=== PATIENT | female | born 1950 ===

== ENCOUNTER 2023-05-08 08:00 | Inpatient (IN) | payer OTHER ==
[~2023-05-08] VITALS: Ht 160 cm; Wt 45.4 kg
[2023-05-08 08:45] LABS: HEMATOCRIT 38.1 % (36.0-45.00); HEMOGLOBIN 12.8 g/dL (12.0-15.00); MEAN CELL VOLUME 93.9 fL (80.00-100.00); MEAN CORPUSCULAR HEMOGLOBIN 31.6 pg (27.00-32.0); MEAN CORPUSCULAR HGB CONC 33.7 g/dl (32.0-36.0); PLATELET COUNT 256 K/uL (150-450); RED BLOOD COUNT 4.05 M/uL (4.00-6.00); RED CELL DISTRIBUTION WIDTH 13.7 % (11.5-14.5)
[2023-05-08 09:05] LABS: INR < 0.93; PARTIAL THROMBOPLASTIN TIME 26.9 SECONDS (22.0-34.0); PROTHROMBIN TIME 9.8 SECONDS (9.0-11.5)
[2023-05-08 09:20] LABS: PH,URINE 5.5 (5.0-8.0); URINE APPEARANCE Clear; URINE BILIRRUBIN Negative (NEGATIVE); URINE BLOOD Small; URINE COLOR Yellow; URINE GLUCOSE Negative (NEGATIVE); URINE LEUKOCYTE Trace; URINE NITRATE Negative; URINE PROTEIN Negative (NEGATIVE); URINE UROBILINOGEN 0.2 E.U./dl
[2023-05-08 09:21] LABS: URINE EPITHELIAL CELLS 2.9 uL (0.0-38.8); URINE RBC 18.9 uL (0.0-20.8); URINE WBC 17.4 uL (0.0-23.2)
[2023-05-08 09:24] LABS: BILIRUBIN TOTAL 0.65 mg/dL (0.3-1.2); CALCIUM 9.6 mg/dL (8.5-10.1); CREATININE SERUM 0.4 mg/dL (0.55-1.02); GFR 156.9; GLOBULINA 3.3 G/DL (2.4-3.5); POTASSIUM 3.93 mEq/L (3.5-5.1); TOTAL PROTEIN 7.3 gm/dL (6.4-8.2)
[2023-05-08] MEDS ORDERED: SYNTHROID50 MCG PO (09:44)
[2023-05-14 23:16] LABS: HEMATOCRIT 29.7 % (36.0-45.00); RED BLOOD COUNT 3.08 M/uL (4.00-6.00)
[2023-05-14 23:42] LABS: HEMOGLOBIN 9.9 g/dL (12.0-15.00)
[2023-05-15 07:19] LABS: HEMATOCRIT 27.1 % (36.0-45.00); HEMOGLOBIN 9.2 g/dL (12.0-15.00); MEAN CELL VOLUME 94.6 fL (80.00-100.00); MEAN CORPUSCULAR HEMOGLOBIN 32.1 pg (27.00-32.0); MEAN CORPUSCULAR HGB CONC 33.9 g/dl (32.0-36.0); PLATELET COUNT 183 K/uL (150-450); RED BLOOD COUNT 2.86 M/uL (4.00-6.00); RED CELL DISTRIBUTION WIDTH 13.4 % (11.5-14.5)
[2023-05-16 06:53] LABS: HEMOGLOBIN 10.3 g/dL (12.0-15.00); MEAN CELL VOLUME 93.5 fL (80.00-100.00); MEAN CORPUSCULAR HGB CONC 34.2 g/dl (32.0-36.0); PLATELET COUNT 170 K/uL (150-450); RED BLOOD COUNT 3.21 M/uL (4.00-6.00); RED CELL DISTRIBUTION WIDTH 13.7 % (11.5-14.5)
[2023-05-16] MEDS ORDERED: OXYC1TAB9 PO (08:20)
[2023-05-16] MEDS ORDERED: INTEGRA PLUS C1 EACH PO (08:20)
[2023-05-16] MEDS ORDERED: XARELTO10 MG PO (08:20)
[2023-05-16] MEDS ORDERED: BACTRIM DS TAB1 EACH PO (08:20)
== END 2023-05-16 15:09 | DRG 470 ==
LOC: SURH 05-14 08:00 → O/R 05-14 09:20 → SURH 05-14 14:00 → SURG 05-14 19:18
PROVIDERS: ADMIT Orthopaedic Surgery Sports Medicine; ATTEND Orthopaedic Surgery Sports Medicine
PROC: 0SR90JA Replacement of Right Hip Joint with Synthetic Substitute, Uncemented, Open Approach (ICD-10-PCS; principal; 2023-05-14 14:00)
PROC: 30233N1 Transfusion of Nonautologous Red Blood Cells into Peripheral Vein, Percutaneous Approach (ICD-10-PCS; 2023-05-15)
DX: M16.11 Unilateral primary osteoarthritis, right hip (principal); D64.9 Anemia, unspecified; E03.9 Hypothyroidism, unspecified

== ENCOUNTER 2024-05-01 07:15 | Inpatient (IN) | payer OTHER ==
[~2024-05-01] VITALS: Ht 91.4 cm; Wt 49.0 kg
[~2024-05-01 07:15] MED LIST: BACTRIM DS TAB1 EACH PO; INTEGRA PLUS C1 EACH PO; OXYC1TAB9 PO; SYNTHROID50 MCG PO; XARELTO10 MG PO
[2024-05-01 08:55] VITALS: BP 116/82
[2024-05-01 08:56] LABS: HEMATOCRIT 40.6 % (36.0-45.00); HEMOGLOBIN 13.4 g/dL (12.0-15.00); MEAN CELL VOLUME 95.6 fL (80.00-100.00); MEAN CORPUSCULAR HEMOGLOBIN 31.6 pg (27.00-32.0); MEAN CORPUSCULAR HGB CONC 33.1 g/dl (32.0-36.0); PLATELET COUNT 280 K/uL (150-450); RED BLOOD COUNT 4.25 M/uL (4.00-6.00); RED CELL DISTRIBUTION WIDTH 13.3 % (11.5-14.5)
[2024-05-01] MEDS ORDERED: VITAMIN D (09:01)
[2024-05-01] MEDS ORDERED: SIMVASTATIN10 MG PO (09:01)
[2024-05-01 09:16] LABS: INR 0.96; PARTIAL THROMBOPLASTIN TIME 26.4 SECONDS (22.0-34.0); PROTHROMBIN TIME 10.5 SECONDS (9.0-11.5)
[2024-05-01 09:22] LABS: PH,URINE 5.5 (5.0-8.0); URINE APPEARANCE Clear; URINE BILIRRUBIN Negative (NEGATIVE); URINE BLOOD Trace; URINE COLOR Yellow; URINE GLUCOSE Negative (NEGATIVE); URINE KETONE Negative (NEGATIVE); URINE LEUKOCYTE Small; URINE NITRATE Negative; URINE PROTEIN Negative (NEGATIVE); URINE UROBILINOGEN 0.2 E.U./dl
[2024-05-01 09:27] LABS: URINE BACTERIA 51.3 uL (0.0-1933); URINE EPITHELIAL CELLS 2.2 uL (0.0-38.8); URINE WBC 8.7 uL (0.0-23.2)
[2024-05-01 09:42] LABS: URINE RBC 1.9 uL (0.0-20.8)
[2024-05-01 10:12] LABS: CREATININE SERUM 0.45 mg/dL (0.55-1.02); GFR 136.58; POTASSIUM 4.69 mEq/L (3.5-5.1)
[2024-05-01 10:26] LABS: ALBUMIN 4.1 gm/dL (3.4-5.0); BILIRUBIN TOTAL 0.66 mg/dL (0.3-1.2); GLOBULINA 3.6 G/DL (2.4-3.5); TOTAL PROTEIN 7.7 gm/dL (6.4-8.2)
[2024-05-01 15:12] LABS: RH POSITIVE
[2024-05-12] MEDS ORDERED: CEFAZOLIN SODIUM 1,000 MG VIAL ONE ×2 (06:33→12:21)
[2024-05-12] MEDS ORDERED: KETOROLAC TROMETHAMINE 60 MG VIAL IM ONE (06:58)
[2024-05-12] MEDS ORDERED: BUPIVACAINE HCL 0.5% 50ML VIAL ONE (06:58)
[2024-05-12] MEDS ORDERED: METHYLPREDNISOLONE ACETATE 80 MG/ML VIAL ONE (06:58)
[2024-05-12] MEDS ORDERED: LIDOCAINE HCL 1%/EPINEPHRINE 20ML VIAL IJ ONE (06:58)
[2024-05-12] MEDS ORDERED: TRANEXAMIC ACID 100MG/1ML (1000MG) AMPUL IV ONE (07:08)
[2024-05-12] MEDS ORDERED: GENTAMICIN SULFATE 40 MG/ML VIAL IV SCH (10:51)
[2024-05-12] MEDS ORDERED: MORPHINE SULFATE 4 MG/ML CARTRIDGE IV PRN (11:00)
[2024-05-12] MEDS ORDERED: SODIUM CHLORIDE 0.45 % 1,000 ML IV SCH (11:00)
[2024-05-12] MEDS ORDERED: MORPHINE SULFATE 2 MG/ML CARTRIDGE IV ONE (11:00)
[2024-05-12] MEDS ORDERED: ONDANSETRON HCL 2 MG/ML VIAL IV PRN (11:00)
[2024-05-12] MEDS ORDERED: CEFAZOLIN SODIUM 1,000 MG VIAL IV SCH (12:00)
[2024-05-12 12:45] LABS: HEMATOCRIT 32.8 % (36.0-45.00); HEMOGLOBIN 10.9 g/dL (12.0-15.00); RED BLOOD COUNT 3.44 M/uL (4.00-6.00)
[2024-05-12 13:30] VITALS: BP 133/63; O2SAT 100
[2024-05-12 16:23] VITALS: BP 130/74; O2SAT 99
[2024-05-12] MEDS ORDERED: SIMVASTATIN 10 MG TABLET PO SCH (17:00)
[2024-05-13] VITALS: BP 124/63; O2SAT 98
[2024-05-13] MEDS ORDERED: LEVOTHYROXINE SODIUM 50 MCG TABLET PO SCH (06:00)
[2024-05-13 07:29] LABS: HEMATOCRIT 31.2 % (36.0-45.00); HEMOGLOBIN 10.5 g/dL (12.0-15.00); MEAN CORPUSCULAR HGB CONC 33.6 g/dl (32.0-36.0); PLATELET COUNT 188 K/uL (150-450); RED BLOOD COUNT 3.28 M/uL (4.00-6.00); RED CELL DISTRIBUTION WIDTH 13.2 % (11.5-14.5)
[2024-05-13] MEDS ORDERED: ACETAMINOPHEN WITH CODEINE 1 UDTAB TABLET PO PRN (08:00)
[2024-05-13 08:30] VITALS: BP 114/79; O2SAT 95
[2024-05-13] MEDS ORDERED: BACITRACIN 28.35 GM OINT.TUBE TOP SCH (09:00)
[2024-05-13] MEDS ORDERED: RIVAROXABAN 10 MG TAB PO SCH (09:00)
[2024-05-13] MEDS ORDERED: SENNA/DOCUSATE SODIUM 1 TAB TABLET PO SCH (09:00)
[2024-05-13] MEDS ORDERED: IRON FUM,PS/FOLIC/BCOMP,C NO.9 1 CAP CAPSULE PO SCH (09:00)
[2024-05-13 16:36] VITALS: BP 101/62; O2SAT 96
[2024-05-14 05:21] VITALS: BP 92/59; O2SAT 94
[2024-05-14 07:03] LABS: HEMATOCRIT 33.2 % (36.0-45.00); MEAN CELL VOLUME 95.8 fL (80.00-100.00); MEAN CORPUSCULAR HEMOGLOBIN 31.8 pg (27.00-32.0); MEAN CORPUSCULAR HGB CONC 33.3 g/dl (32.0-36.0); PLATELET COUNT 201 K/uL (150-450); RED BLOOD COUNT 3.47 M/uL (4.00-6.00); RED CELL DISTRIBUTION WIDTH 13.2 % (11.5-14.5)
[2024-05-14] MEDS ORDERED: Septra Ds Tablet PO (08:33)
[2024-05-14] MEDS ORDERED: INTEGRA PLUS C1 EACH PO (08:33)
[2024-05-14] MEDS ORDERED: ACETAMINOPHEN-1 EAC2 PO (08:34)
[2024-05-14] MEDS ORDERED: XARELTO10 MG PO (08:34)
[2024-05-14] MEDS ORDERED: SULFAMETHOXAZOLE/TRIMETHOPRIM DS 1 TAB PO SCH (09:00)
== END 2024-05-14 17:32 | disposition home or self-care (01) | DRG 470 ==
LOC: O/R 05-12 05:00 → SURG 05-12 05:00 → SURH 05-12 07:15 → O/R 05-12 08:27 → SURH 05-12 10:30 → SURG 05-12 13:05
PROVIDERS: ADMIT Orthopaedic Surgery Sports Medicine; ATTEND Orthopaedic Surgery Sports Medicine
PROC: 0SRB0JA Replacement of Left Hip Joint with Synthetic Substitute, Uncemented, Open Approach (ICD-10-PCS; principal; 2024-05-12 10:30)
DX: M16.12 Unilateral primary osteoarthritis, left hip (principal); E03.9 Hypothyroidism, unspecified